=== PATIENT | female | born 1970 | race Caucasian/White ===

== ENCOUNTER 2018-09-06 09:18 | Emergency (ER) | payer MEDICAID ==
[2018-09-06 09:51] VITALS: BMI 27.3
[2018-09-06] MEDS ORDERED: Sodium Chloride 0.9% 1,000 ML IV STA (09:53)
--- NOTE | 2018-09-06 09:58 | ED PDOC ---
Arrival/HPI - General Historian: Patient - History of Present Illness Narrative History of Present Illness (Text): 09/06/18 09:54 48 y/o female, pmh including menorrhagia with iron defiency anemia on iron supplement, nkda, c/o feeling fatigue and tired after her 2 weeks menstrual cycle finished yesterday. Pt. stated that she had history of blood transfusion due to the heavy period with last transfusion on 07/2018 at [facility] [place] with 2 units of PRBC, scheduled to see her new obgyn tomorrow but she feels fatigue and tired, no night sweat, no rash, no numbness or tingling, no palpitation, no numbness or tingling, no other medical or psychological complaints. Past Medical History - Provider Review Nursing Documentation Reviewed: Yes Family/Social History - Physician Review Nursing Documentation Reviewed: Yes Family/Social History: Unknown Family HX Allergies/Home Meds Allergies/Adverse Reactions: Allergies No Known Allergies Allergy (Verified 09/06/18 09:46) Home Medications: Home Meds Medication Instructions Recorded Confirmed Iron Ps Complex/B12/Folic Acid 1 cap PO DAILY 09/06/18 09/06/18 [Poly-Iron 150 Forte 25 Mcg-1 mg-150 mg] Naproxen [Naprosyn Tab] 375 mg PO BID 09/06/18 09/06/18 Review of Systems - Review of Systems Constitutional: Fatigue. absent: Fevers Eyes: absent: Vision Changes ENT: absent: Hearing Changes Respiratory: absent: SOB, Cough Cardiovascular: absent: Chest Pain Gastrointestinal: absent: Abdominal Pain, Vomiting Genitourinary Female: Vaginal Bleeding. absent: Dysuria, Frequency, Hematuria, Urine Output Changes, Vaginal Discharge Musculoskeletal: absent: Arthralgias, Back Pain Skin: absent: Rash, Pruritis Psychiatric: absent: Anxiety, Depression, Suicidal Ideation Physical Exam - Systems Exam Head: Present: Atraumatic, Normocephalic Pupils: Present: PERRL Extroacular Muscles: Present: EOMI Conjunctiva: Present: Normal Mouth: Present: Moist Mucous Membranes Neck: Present: Normal Range of Motion Respiratory/Chest: Present: Clear to Auscultation, Good Air Exchange. No: Respiratory Distress, Accessory Muscle Use Cardiovascular: Present: Regular Rate and Rhythm, Normal S1, S2. No: Murmurs Abdomen: No: Tenderness, Distention, Peritoneal Signs, Rebound, Guarding Genitourinary/Pelvic Exam: Present: Other (pt. refused) Back: Present: Normal Inspection Upper Extremity: Present: Normal Inspection. No: Cyanosis, Edema Lower Extremity: Present: Normal Inspection. No: Edema Neurological: Present: GCS=15, CN II-XII Intact, Speech Normal Skin: Present: Warm, Dry, Normal Color. No: Rashes Psychiatric: Present: Alert, Oriented x 3, Normal Insight, Normal Concentration Medical Decision Making ED Course and Treatment: 09/06/18 09:59 -labs -sonogram -IVF -Observe and reassess 09/06/18 12:09 -Sonogram: The uterus is enlarged due to a anterior fundal fibroid 11.0 cm greatest dimension obscuring the upper endometrium with the mid inferior endometrium unremarkable appearing. No additional myometrial findings. Cervix unremarkable. The bilateral ovaries are not identified and may be atrophic versus resected. Clinically correlate for potential bilateral oophorectomy. Bilateral adnexal compartments otherwise unremarkable appearing. -Labs are non-significant except hgb 10.1 -No active vaginal bleeding -All labs and radiology results discussed with the patient and advised outpatient follow up. -Discharge home with education on continue the iron supplement, hgb for this visit is 10.1, follow up with your own pmd and obgyn tomorrow, return to the ER or any new or worsening signs or symptoms. - RAD Interpretation Radiology Orders: 09/06/18 09:53 PELVIC NON OB B SCAN LIMITED [US] Stat Date of service: 09/06/2018 HISTORY: heavy period, fatigue, anemia COMPARISON: None available. TECHNIQUE: Transabdominal and transvaginal pelvic ultrasound was performed with longitudinal and transverse images submitted for interpretation. FINDINGS: UTERUS: Measures 14.9 x 8.7 x 10.8 cm. Uterus is enlarged, anteverted with a large anterior, mid to upper fundal fibroid appreciated bridging the sub serosal and submucous spaces distorting a portion of the upper endometrium significantly. The fibroid measures 11.0 x 8.3 x 10.2 cm. No additional myometrial lesion appreciable. ENDOMETRIUM: Measures 6.5 mm in diameter. Endometrium is partially obscured by large anterior fundal fibroid as discussed above. Visualize mid to inferior portion appears unremarkable. CERVIX: No cervical abnormality identified. RIGHT OVARY: Not identified. No definite suspicious right adnexal findings. LEFT OVARY: Not identified. No definite suspicious left adnexal findings. FREE FLUID: No significant free fluid noted. OTHER FINDINGS: None. IMPRESSION: 1. The uterus is enlarged due to a anterior fundal fibroid 11.0 cm greatest dimension obscuring the upper endometrium with the mid inferior endometrium unremarkable appearing. No additional myometrial findings. Cervix unremarkable. 2. The bilateral ovaries are not identified and may be atrophic versus resected. Clinically correlate for potential bilateral oophorectomy. Bilateral adnexal compartments otherwise unremarkable appearing. Teletype Installer: Radiologist - Medication Orders Current Medication Orders: Sodium Chloride (Sodium Chloride 0.9%) 1,000 mls @ 999 mls/hr IV .Q1H1M STA Stop: 09/06/18 10:53 - PA / PLATE STACKER HAND / Resident Statement / has reviewed & agrees with the documentation as recorded. Disposition/Present on Arrival - Present on Arrival Any Indicators Present on Arrival: No History of DVT/PE: No History of Uncontrolled Diabetes: No Urinary Catheter: No History of Decub. Ulcer: No - Disposition Have Diagnosis and Disposition been Completed?: Yes Diagnosis: Fibroid, Anemia Disposition: HOME/ ROUTINE Disposition Time: 12:12 Patient Plan: Discharge Condition: IMPROVED Additional Instructions: -Discharge home with education on continue the iron supplement, hgb for this visit is 10.1, follow up with your own pmd and obgyn tomorrow, return to the ER or any new or worsening signs or symptoms. Referrals: Momo Stone MD [Staff Provider] - Follow up with primary Jenni Irvin MD [Staff Provider] - Follow up with primary Forms: WORK NOTE
[2018-09-06 10:08] VITALS: RESP 18; TEMP 98; O2SAT 99
[2018-09-06 10:18] LABS: BASO # 0.02 K/mm3 (0.0-2.0); BASO % 0.3 % (0.0-3.0); EOS # 0.2 (0.0-0.7); EOS % 2.8 % (1.5-5.0); GRAN # 3.75 (1.4-6.5); GRAN % 52.9 % (50.0-68.0); HEMOGLOBIN 10.1 g/dL (12.0-16.0); LYMPH # 2.5 (1.2-3.4); LYMPH % 35.8 % (22.0-35.0); MEAN CORPUSCULAR HEMOGLOBIN 23.5 pg (25.0-35.0); MEAN CORPUSCULAR HGB CONC 29.8 g/dl (31.0-37.0); MONO # 0.6 (0.1-0.6); MONO % 8.2 % (1.0-6.0); RBC 4.29 10^6/uL (3.5-6.1); RED CELL DISTRIBUTION WIDTH 22.5 % (11.5-14.5); WHITE BLOOD COUNT 7.1 10^3/uL (4.5-11.0)
[2018-09-06 10:29] LABS: ALB/GLOB RATIO 1.2 (1.1-1.8); ALBUMIN 4.1 g/dL (3.0-4.8); ALT/SGPT 20 U/L (7-56); AST/SGOT 21 U/L (14-36); BLOOD UREA NITROGEN 9 mg/dL (7-21); CALCIUM 8.9 mg/dL (8.4-10.5); GFR NON-AFRICAN AMERICAN > 60
[2018-09-06 10:30] LABS: INR 0.95; PARTIAL THROMBOPLASTIN TIME 26.4 Seconds (25.1-36.5); PROTHROMBIN TIME 10.9 SECONDS (9.4-12.5)
--- NOTE | 2018-09-06 11:53 | US ---
Date of service: 09/06/2018 HISTORY: heavy period, fatigue, anemia COMPARISON: None available. TECHNIQUE: Transabdominal and transvaginal pelvic ultrasound was performed with longitudinal and transverse images submitted for interpretation. FINDINGS: UTERUS: Measures 14.9 x 8.7 x 10.8 cm. Uterus is enlarged, anteverted with a large anterior, mid to upper fundal fibroid appreciated bridging the sub serosal and submucous spaces distorting a portion of the upper endometrium significantly. The fibroid measures 11.0 x 8.3 x 10.2 cm. No additional myometrial lesion appreciable. ENDOMETRIUM: Measures 6.5 mm in diameter. Endometrium is partially obscured by large anterior fundal fibroid as discussed above. Visualize mid to inferior portion appears unremarkable. CERVIX: No cervical abnormality identified. RIGHT OVARY: Not identified. No definite suspicious right adnexal findings. LEFT OVARY: Not identified. No definite suspicious left adnexal findings. FREE FLUID: No significant free fluid noted. OTHER FINDINGS: None. IMPRESSION: 1. The uterus is enlarged due to a anterior fundal fibroid 11.0 cm greatest dimension obscuring the upper endometrium with the mid inferior endometrium unremarkable appearing. No additional myometrial findings. Cervix unremarkable. 2. The bilateral ovaries are not identified and may be atrophic versus resected. Clinically correlate for potential bilateral oophorectomy. Bilateral adnexal compartments otherwise unremarkable appearing.
[2018-09-06 12:04] VITALS: BP 145/78; PULSE 81
[2018-09-06 12:38] LABS: URINE BILIRUBIN NEGATIVE (NEGATIVE); URINE BLOOD NEGATIVE (NEGATIVE); URINE GLUCOSE (UA) NEGATIVE (NEGATIVE); URINE LEUKOCYTE ESTERASE NEGATIVE Leu/uL (NEGATIVE); URINE PROTEIN NEGATIVE mg/dL (<30 mg/dL); URINE UROBILINOGEN 0.2 E.U./dL (<1 E.U./dL)
[2018-09-06 12:40] LABS: URINE APPEARANCE CLEAR (CLEAR); URINE COLOR YELLOW (YELLOW)
== END 2018-09-06 13:12 | disposition home or self-care (01) ==
LOC: ED 09:18
DX: D64.9 Anemia, unspecified (principal); D25.9 Leiomyoma of uterus, unspecified
CPT/HCPCS: 76830; 80053; 81003; 83735; 85025; 85610; 85730; 86850; 86900; 96360; 99285; J7030

== ENCOUNTER 2018-09-17 07:38 | Emergency (ER) | payer MEDICAID, OTHER ==
[2018-09-17 07:38] VITALS: BMI 27.3
[2018-09-17] MEDS ORDERED: Sodium Chloride 0.9% 1,000 ML IV STA (08:11)
--- NOTE | 2018-09-17 08:20 | ED PDOC ---
Arrival/HPI - General Chief Complaint: Abdominal Pain Time Seen by Provider: 09/17/18 07:58 Historian: Patient - History of Present Illness Narrative History of Present Illness (Text): 09/17/18 08:10 A 48 year old female, whose past medical history includes fibroids and anemia, presents to the emergency department with a complaint of 3 day duration bloody stools. Patient reports bright red blood during her normal bowel movements. She complaints of some nausea and 1 episode of non-bilious, non- bloody vomiting yesterday. The patient also complains of burning/ cramping sensation to the epigastrium and mild lightheadedness when she stands. Patient notes that she traveled to [facility] at the beginning of June and was evaluated for similar symptoms. Patient was instructed to follow up as an outpatient for a colonoscopy. She denies fevers, chills, headache, dizziness, chest pain, shortness of breath, dyspnea on exertion, cough, lower abdominal pain, diarrhea, back pain, neck pain, vaginal bleeding/discharge, urinary symptoms, or any other complaint. PMD: Dr. Macias Time/Duration: Other (3 Days) Symptom Onset: Sudden Symptom Course: Unchanged Activities at Onset: Rest, Light Context: Home Past Medical History - Provider Review Nursing Documentation Reviewed: Yes - Cardiac Hx Cardiac Disorders: No - Pulmonary Hx Respiratory Disorders: No - Neurological Hx Neurological Disorder: No - HEENT Hx HEENT Disorder: No - Endocrine/Metabolic Hx Endocrine Disorders: No - Hematological/Oncological Hx Blood Disorders: Yes Hx Anemia: Yes Hx Blood Transfusions: Yes (07/2018) Hx Blood Transfusion Reaction: No - Integumentary Hx Dermatological Disorder: No - Musculoskeletal/Rheumatological Hx Musculoskeletal Disorders: No - Gastrointestinal Hx Gastrointestinal Disorders: No - Genitourinary/Gynecological Hx Genitourinary Disorders: Yes Other/Comment: menorrhagia - Psychiatric Hx Psychophysiologic Disorder: No Hx Substance Use: No - Surgical History Hx Dilation and Curettage: Yes - Anesthesia Hx Anesthesia: No Family/Social History - Physician Review Nursing Documentation Reviewed: Yes Family/Social History: No Known Family HX Smoking Status: Never Smoked Hx Alcohol Use: Yes Hx Substance Use: No Allergies/Home Meds Allergies/Adverse Reactions: Allergies No Known Allergies Allergy (Verified 09/06/18 09:46) Home Medications: Home Meds Medication Instructions Recorded Confirmed Iron Ps Complex/B12/Folic Acid 1 cap PO DAILY 09/06/18 09/17/18 [Poly-Iron 150 Forte 25 Mcg-1 mg-150 mg] Review of Systems - Physician Review All systems were reviewed & negative as marked: Yes - Review of Systems Constitutional: absent: Fevers, Night Sweats Respiratory: absent: SOB, Cough Cardiovascular: absent: Chest Pain, DOW Gastrointestinal: Abdominal Pain (Epigastric abdominal burning/cramping), Nausea, Vomiting, Hematochezia (Bright red blood in stools.). absent: Diarrhea Genitourinary Female: absent: Urine Output Changes, Vaginal Bleeding, Vaginal Discharge Musculoskeletal: absent: Back Pain, Neck Pain Neurological: Other (Lightheadedness). absent: Headache, Dizziness Physical Exam Vital Signs Reviewed: Yes Vital Signs Temp Pulse Resp BP Pulse Ox 09/17/18 07:52 97.9 F 92 H 16 133/81 100 09/17/18 07:51 97.9 F 94 H 16 133/81 100 Temperature: Afebrile Blood Pressure: Normal Pulse: Tachycardic Respiratory Rate: Normal Appearance: Positive for: Well-Appearing, Non-Toxic, Comfortable Pain Distress: None Mental Status: Positive for: Alert and Oriented X 3 - Systems Exam Head: Present: Atraumatic, Normocephalic Pupils: Present: PERRL Extroacular Muscles: Present: EOMI Conjunctiva: Present: Injected ([place]) Mouth: Present: Moist Mucous Membranes Neck: Present: Normal Range of Motion Respiratory/Chest: Present: Clear to Auscultation, Good Air Exchange. No: Respiratory Distress, Accessory Muscle Use Cardiovascular: Present: Regular Rate and Rhythm, Normal S1, S2. No: Murmurs Abdomen: Present: Tenderness (Epigastric tenderness), Guarding. No: Distention, Peritoneal Signs, Rebound Rectal: Present: Other (Rectal exam completed by resident, female slate trimmer present: Alba LAL. Supervised by me. Guaiac negative.). No: Occult Blood, Hemorrhoids, Fissures Back: Present: Normal Inspection Upper Extremity: Present: Normal Inspection. No: Cyanosis, Edema Lower Extremity: Present: Normal Inspection. No: Edema Neurological: Present: GCS=15, CN II-XII Intact, Speech Normal Skin: Present: Warm, Dry, Normal Color. No: Rashes Psychiatric: Present: Alert, Oriented x 3, Normal Insight, Normal Concentration Medical Decision Making ED Course and Treatment: 12/08/18 08:26 Impression: A 48 year old female presents to the emergency department with a complaint of 3 day duration bloody stools, nausea, vomiting, and epigastric discomfort. Differential: GI Bleed vs Cholecystitis vs UTI vs Enteritis Plan: -- EKG -- Labs -- Urinalysis -- Protonix, Zofran, and IV Fluids -- Reassess and disposition Prior Visits: Notes and results from previous visits were reviewed. Progress Notes: EKG: Ordered, reviewed, and independently interpreted the EKG. Rate : 79 BPM Rhythm : NSR PROCEDURE: CT Abdomen and Pelvis with contrast Signed By: Mychal Ramos MD Date Signed: 09/17/18 1221 IMPRESSION: There is an enlarged fibroid uterus measuring 12.8 x9.5 by 12.5 cm. There is a thick walled collapsed cyst in the right ovary measuring 1.7 cm. No acute intra- abdominal findings. 09/17/18 13:11 Patient feels much better and she has no abdominal pain. Her bloody stools this week were mild. No large quantity of blood as per patient. She no longer feels lightheaded after IV fluids. Abdomen is soft and not tender. She states that she has a cough now this week. Some nasal congestion. CXR ordered. 09/17/18 13:56 CT reviewed. Urinalysis negative. Chest X-ray negative. In light of elevated white count and cough, will treat with Levaquin for early pneumonia. I have discussed the results and plan with the patient, who expresses understanding. Patient in agreement with plan to be discharged home. Patient is stable for discharge. Patient was instructed to follow up with physician or return if symptoms worsen or new concerning symptoms arise. - Lab Interpretations I have reviewed the lab results: Yes - EKG Interpretation Interpreted by ED Physician: Yes Type: 12 lead EKG - Scribe Statement The provider has reviewed the documentation as recorded by the Norrisibshira Wu Provider Scribe Attestation: All medical record entries made by the Scribe were at my direction and personally dictated by me. I have reviewed the chart and agree that the record accurately reflects my personal performance of the history, physical exam, medical decision making, and the department course for this patient. I have also personally directed, reviewed, and agree with the discharge instructions and disposition. Disposition/Present on Arrival - Present on Arrival Any Indicators Present on Arrival: No History of DVT/PE: No History of Uncontrolled Diabetes: No Urinary Catheter: No History of Decub. Ulcer: No History Surgical Site Infection Following: None - Disposition Have Diagnosis and Disposition been Completed?: Yes Diagnosis: Abdominal pain, GI bleeding, Cough Disposition: HOME/ ROUTINE Disposition Time: 13:56 Patient Plan: Discharge Condition: IMPROVED Discharge Instructions (ExitCare): Acute Bronchitis, Gastrointestinal Bleeding (DC), Viral Gastroenteritis, Adult (DC) Additional Instructions: HEATHER ROSE, thank you for letting us take care of you today. Your provider was Frank Abraham DO and you were treated for Abdominal Pain, GI bleeding and Cough. The emergency medical care you received today was directed at your acute symptoms. If you were prescribed any medication, please fill it and take as directed. It may take several days for your symptoms to resolve. Return to the Emergency Department if your symptoms worsen, do not improve, or if you have any other problems. Please contact your doctor or call one of the physicians/clinics you have been referred to that are listed on the Patient Visit Information form that is included in your discharge packet. Bring any paperwork you were given at discharge with you along with any medications you are taking to your follow up visit. Our treatment cannot replace ongoing medical care by a primary care provider outside of the emergency department. Thank you for allowing the [facility] team to be part of your care today. If you had an X-Ray or CT scan: A Radiologist will review the ED reading if any change in treatment is needed we will contact you. If you had a blood, urine, or wound culture: It will take several days for the results, if any change in treatment is needed we will contact you. If you had an STI test: It will take 48 hours for the results. Please call after 1 week if you have not heard back. Prescriptions: Famotidine [Pepcid] 20 mg PO DAILY #30 tab Levofloxacin [Levaquin] 750 mg PO DAILY #4 tablet Ondansetron ODT [Zofran ODT] 4 mg PO Q6 #14 odt Referrals: [facility] Bethany Nguyen, [Non-Staff] - Follow up with primary Forms: [employer] (Khmer)
[2018-09-17 08:35] LABS: PH,URINE 7.5 (4.7-8.0); URINE BILIRUBIN NEGATIVE (NEGATIVE); URINE BLOOD NEGATIVE (NEGATIVE); URINE GLUCOSE (UA) NEGATIVE (NEGATIVE); URINE LEUKOCYTE ESTERASE NEGATIVE Leu/uL (NEGATIVE); URINE PROTEIN NEGATIVE mg/dL (<30 mg/dL); URINE UROBILINOGEN 0.2 E.U./dL (<1 E.U./dL)
[2018-09-17 08:39] LABS: URINE APPEARANCE CLEAR (CLEAR); URINE COLOR YELLOW (YELLOW)
[2018-09-17 08:56] LABS: BASO # 0.02 K/mm3 (0.0-2.0); BASO % 0.1 % (0.0-3.0); EOS # 0.1 (0.0-0.7); EOS % 0.6 % (1.5-5.0); GRAN # 11.93 (1.4-6.5); GRAN % 77.4 % (50.0-68.0); HEMOGLOBIN 10.6 g/dL (12.0-16.0); LYMPH # 2.1 (1.2-3.4); LYMPH % 13.7 % (22.0-35.0); MEAN CELL VOLUME 78.6 fl (80.0-105.0); MEAN CORPUSCULAR HEMOGLOBIN 23.9 pg (25.0-35.0); MEAN CORPUSCULAR HGB CONC 30.5 g/dl (31.0-37.0); MEAN PLATELET VOLUME 9.2 fl (7.0-11.0); MONO # 1.3 (0.1-0.6); MONO % 8.2 % (1.0-6.0); RBC 4.43 10^6/uL (3.5-6.1); RED CELL DISTRIBUTION WIDTH 19.5 % (11.5-14.5); WHITE BLOOD COUNT 15.4 10^3/uL (4.5-11.0)
[2018-09-17 09:14] LABS: PARTIAL THROMBOPLASTIN TIME 26.9 Seconds (25.1-36.5)
[2018-09-17] MEDS ORDERED: Iohexol 240 (50 ml) ONE (09:15)
[2018-09-17 09:18] LABS: ALB/GLOB RATIO 1.2 (1.1-1.8); ALBUMIN 4.4 g/dL (3.0-4.8); ALT/SGPT 34 U/L (7-56); AMYLASE 92 U/L (35-125); AST/SGOT 29 U/L (14-36); BLOOD UREA NITROGEN 7 mg/dL (7-21); CALCIUM 9.7 mg/dL (8.4-10.5); GFR NON-AFRICAN AMERICAN > 60; LIPASE 167 U/L (23-300)
[2018-09-17 09:25] LABS: INR 1.1; PROTHROMBIN TIME 12.7 SECONDS (9.4-12.5)
[2018-09-17] MEDS ORDERED: Atrop/Hyosc/Scopal/PB Elixir (120 ml) PO STA (10:36)
[2018-09-17] MEDS ORDERED: Lidocaine 2% Viscous 100 ml PO STA (10:36)
[2018-09-17] MEDS ORDERED: Alum-Mag Hydrox-Simethicone Susp (30 mL) PO STA (10:36)
[2018-09-17] MEDS ORDERED: Iohexol 350 MG/100 ML VIAL ONE (11:25)
--- NOTE | 2018-09-17 12:29 | CT ---
Date of service: 09/17/2018 PROCEDURE: CT Abdomen and Pelvis with contrast HISTORY: abd pain, bloody stool COMPARISON: None. TECHNIQUE: Contrast dose: 100 cc of Omni 350 Radiation dose: Total exam DLP = 455.29 mGy-cm. This CT exam was performed using one or more of the following dose reduction techniques: Automated exposure control, adjustment of the mA and/or kV according to patient size, and/or use of iterative reconstruction technique. FINDINGS: LOWER THORAX: Unremarkable. LIVER: Unremarkable. No gross lesion or ductal dilatation. GALLBLADDER AND BILE DUCTS: Unremarkable. PANCREAS: Unremarkable. No gross lesion or ductal dilatation. SPLEEN: Unremarkable. ADRENALS: Unremarkable. No mass. KIDNEYS AND URETERS: Both renal collecting systems are mildly dilated. There are no stones visualized. This could be secondary to compression by the enlarged uterus. VASCULATURE: Unremarkable. No aortic aneurysm. No aortic atherosclerotic calcification or mural plaque present. BOWEL: Unremarkable. No obstruction. No gross mural thickening. APPENDIX: Normal appendix. PERITONEUM: Unremarkable. No free fluid. No free air. LYMPH NODES: Unremarkable. No enlarged lymph nodes. BLADDER: Unremarkable. REPRODUCTIVE: There is an enlarged fibroid uterus measuring 12.8 x 9.5 by 12.5 cm. There is a thick-walled collapsed cyst in the right ovary measuring 1.7 cm. BONES: No acute fracture. OTHER FINDINGS: None. IMPRESSION: There is an enlarged fibroid uterus measuring 12.8 x 9.5 by 12.5 cm. There is a thick-walled collapsed cyst in the right ovary measuring 1.7 cm. No acute intra-abdominal findings
[2018-09-17 12:50] VITALS: O2SAT 99
[2018-09-17] MEDS ORDERED: levoFLOXacin 750 MG TAB PO STA (13:35)
[2018-09-17 14:00] VITALS: BP 132/51; PULSE 85; RESP 19; TEMP 98
--- NOTE | 2018-09-17 14:11 | RAD ---
Date of service: 09/17/2018 HISTORY: cough r/o pna COMPARISON: No prior. TECHNIQUE: Chest PA and lateral FINDINGS: LUNGS: No active pulmonary disease. PLEURA: No significant pleural effusion identified. No pneumothorax apparent. CARDIOVASCULAR: No aortic atherosclerotic calcification present. Normal cardiac size. No pulmonary vascular congestion. OSSEOUS STRUCTURES: No significant abnormalities. VISUALIZED UPPER ABDOMEN: Normal. OTHER FINDINGS: None. IMPRESSION: No active disease.
--- NOTE | 2018-09-17 15:40 | CARD ---
APPROVED REPORT Date of service: 09/17/2018 EKG Measurement Heart [id number] <Conclusion> Normal sinus rhythm Normal ECG
== END 2018-09-17 13:59 | disposition home or self-care (01) ==
LOC: ED 07:38
DX: K92.2 Gastrointestinal hemorrhage, unspecified (principal); R10.9 Unspecified abdominal pain; R05 Cough; D25.9 Leiomyoma of uterus, unspecified; D64.9 Anemia, unspecified
CPT/HCPCS: 71046; 74177; 80053; 81003; 82150; 83690; 85025; 85610; 85730; 86850; 86900; 93005; 96361; 96374; 96375; 99284; C9113; J2405; J7030; Q9966; Q9967

== ENCOUNTER 2019-02-08 05:42 | Observation (INO) | payer MEDICAID, OTHER ==
--- NOTE | 2019-02-08 06:20 | ED PDOC ---
Arrival/HPI - General Chief Complaint: Dizziness/Lightheaded Time Seen by Provider: 02/08/19 06:08 Historian: Patient - History of Present Illness Narrative History of Present Illness (Text): 02/08/19 06:17 Jesenia Koroma is a 48 year old female, whose past medical history includes hysterectomy, uterine fibroids, and anemia, who presents to the ED complaining of near-syncope. Patient states she has been feeling near-syncopal in termittently for the past week with associated dizziness. Patient described dizziness as light-headedness. Patient denies any trauma/injury, palpitations, chest pain, shortness of breath, nausea, vomiting, diarrhea, neck pain, headache, dizziness, or any other complaints. Time/Duration: 1 week Symptom Onset: Gradual Symptom Course: Unchanged Activities at Onset: Light Context: Home Past Medical History - Provider Review Nursing Documentation Reviewed: Yes - Cardiac Hx Cardiac Disorders: No - Pulmonary Hx Respiratory Disorders: No - Neurological Hx Neurological Disorder: No - HEENT Hx HEENT Disorder: No - Endocrine/Metabolic Hx Endocrine Disorders: No - Hematological/Oncological Hx Blood Disorders: Yes Hx Anemia: Yes Hx Blood Transfusions: Yes (07/2018) Hx Blood Transfusion Reaction: No - Integumentary Hx Dermatological Disorder: No - Musculoskeletal/Rheumatological Hx Musculoskeletal Disorders: No - Gastrointestinal Hx Gastrointestinal Disorders: No - Genitourinary/Gynecological Hx Genitourinary Disorders: Yes Other/Comment: menorrhagia - Psychiatric Hx Psychophysiologic Disorder: No Hx Substance Use: No - Surgical History Hx Dilation and Curettage: Yes - Anesthesia Hx Anesthesia: No Family/Social History - Physician Review Nursing Documentation Reviewed: Yes Family/Social History: Unknown Family HX Smoking Status: Never Smoked Hx Alcohol Use: Yes Hx Substance Use: No Allergies/Home Meds Allergies/Adverse Reactions: Allergies No Known Allergies Allergy (Verified 09/06/18 09:46) Home Medications: Home Meds Medication Instructions Recorded Confirmed Iron Ps Complex/B12/Folic Acid 1 cap PO DAILY 09/06/18 09/17/18 [Poly-Iron 150 Forte 25 Mcg-1 mg-150 mg] Review of Systems - Physician Review All systems were reviewed & negative as marked: Yes - Review of Systems Constitutional: Normal. absent: Fevers Eyes: Normal ENT: Normal Respiratory: Normal. absent: SOB, Cough Cardiovascular: Other (+near-syncopa). absent: Chest Pain Gastrointestinal: Normal. absent: Abdominal Pain, Diarrhea, Nausea, Vomiting Genitourinary Female: Normal. absent: Dysuria, Frequency, Hematuria, Urine Output Changes Musculoskeletal: Normal. absent: Neck Pain Skin: Normal. absent: Rash Neurological: Dizziness Endocrine: Normal Hemo/Lymphatic: Normal Psychiatric: Normal Physical Exam Vital Signs Reviewed: Yes Vital Signs Temp Pulse Resp BP Pulse Ox 02/08/19 05:53 97.3 F L 62 18 129/85 99 Temperature: Afebrile Blood Pressure: Normal Pulse: Regular Respiratory Rate: Normal Appearance: Positive for: Well-Appearing, Non-Toxic, Comfortable Pain Distress: None Mental Status: Positive for: Alert and Oriented X 3 - Systems Exam Head: Present: Atraumatic, Normocephalic Pupils: Present: PERRL Extroacular Muscles: Present: EOMI Conjunctiva: Present: Normal Mouth: Present: Moist Mucous Membranes Neck: Present: Normal Range of Motion Respiratory/Chest: Present: Clear to Auscultation, Good Air Exchange. No: Respiratory Distress, Accessory Muscle Use Cardiovascular: Present: Regular Rate and Rhythm, Normal S1, S2. No: Murmurs Abdomen: No: Tenderness, Distention, Peritoneal Signs Back: Present: Normal Inspection Upper Extremity: Present: Normal Inspection. No: Cyanosis, Edema Lower Extremity: Present: Normal Inspection. No: Edema Neurological: Present: GCS=15, CN II-XII Intact, Speech Normal Skin: Present: Warm, Dry, Normal Color. No: Rashes Psychiatric: Present: Alert, Oriented x 3, Normal Insight, Normal Concentration Medical Decision Making ED Course and Treatment: 02/08/19 06:17 Impression: 48 year old female complaining of intermittent near-syncope and dizziness for the past week. Plan: -- CT Head w/o contrast -- EKG -- Chest X-ray -- Labs, cardiac enzymes -- Reassess and disposition Progress Notes: 02/08/19 07:00 Case endorsed to /pending labs/CT Head/CXR/reassess/final disposition - EKG Interpretation EKG Interpretation (Text): 02/08/19 06:55 EKG-Sinus bradycardia@56,no acute changes Interpreted by ED Physician: Yes Type: 12 lead EKG - Scribe Statement The provider has reviewed the documentation as recorded by the Gucci Cruz Provider Scribe Attestation: All medical record entries made by the Scribe were at my direction and personally dictated by me. I have reviewed the chart and agree that the record accurately reflects my personal performance of the history, physical exam, medical decision making, and the department course for this patient. I have also personally directed, reviewed, and agree with the discharge instructions and disposition. Disposition/Present on Arrival - Present on Arrival Any Indicators Present on Arrival: No History of DVT/PE: No History of Uncontrolled Diabetes: No Urinary Catheter: No History of Decub. Ulcer: No History Surgical Site Infection Following: None - Disposition Have Diagnosis and Disposition been Completed?: No Diagnosis: Near syncope, Dizziness Disposition Time: 07:00 Patient Problems: Current Active Problems Problem Status Onset Dizziness Acute Near syncope Acute Condition: STABLE Referrals: Rosas Sheffield MD [Primary Care Provider] - Follow up with primary Forms: [employer] (Urdu)
--- NOTE | 2019-02-08 07:11 | ED PDOC ---
Physical Exam Vital Signs Temp Pulse Resp BP Pulse Ox 02/08/19 05:53 97.3 F L 62 18 129/85 99 Medical Decision Making ED Course and Treatment: 02/08/19 07:10 Case endorsed to me by Dr. Noriega. Pending labs and CT Head. Will reassess. 02/08/19 09:[address] Head [address] - Normal CT of head. 02/08/19 10:40 Assessed patient who says she wants to be admitted. Still feels near syncopal. 02/08/19 11:[address] Kaiser who accepts patient for observation. - RAD Interpretation Radiology Orders: 02/08/19 06:18 CHEST PORTABLE [RAD] Stat 02/08/19 06:19 HEAD W/O CONTRAST [CT] Stat - Scribe Statement The provider has reviewed the documentation as recorded by the Norrisibshira Coreas All medical record entries made by the Scribe were at my direction and personally dictated by me. I have reviewed the chart and agree that the record accurately reflects my personal performance of the history, physical exam, medical decision making, and the department course for this patient. I have also personally directed, reviewed, and agree with the discharge instructions and disposition. Disposition/Present on Arrival - Present on Arrival Any Indicators Present on Arrival: No History of DVT/PE: No History of Uncontrolled Diabetes: No Urinary Catheter: No History of Decub. Ulcer: No History Surgical Site Infection Following: None - Disposition Have Diagnosis and Disposition been Completed?: Yes Diagnosis: Near syncope, Dizziness Disposition: HOSPITALIZED Disposition Time: 11:04 Patient Plan: Admission, Observation Condition: STABLE
[2019-02-08 07:40] LABS: HEMOGLOBIN 9.2 g/dL (12.0-16.0); MEAN CELL VOLUME 73.2 fl (80.0-105.0); MEAN CORPUSCULAR HEMOGLOBIN 21.1 pg (25.0-35.0); MEAN CORPUSCULAR HGB CONC 28.8 g/dl (31.0-37.0); MEAN PLATELET VOLUME 9.7 fl (7.0-11.0); RBC 4.37 10^6/uL (3.5-6.1); RED CELL DISTRIBUTION WIDTH 16.7 % (11.5-14.5)
[2019-02-08 07:49] LABS: INR 1.05; PARTIAL THROMBOPLASTIN TIME 30.5 Seconds (26.9-38.3); PROTHROMBIN TIME 11.9 SECONDS (9.4-12.5)
[2019-02-08 07:52] LABS: ALB/GLOB RATIO 1.2 (1.1-1.8); ALBUMIN 3.7 g/dL (3.0-4.8); ALT/SGPT 8 U/L (7-56); AST/SGOT 18 U/L (14-36); BLOOD UREA NITROGEN 6 mg/dL (7-21); CALCIUM 8.9 mg/dL (8.4-10.5); GFR NON-AFRICAN AMERICAN > 60
[2019-02-08 08:03] LABS: TROPONIN I < 0.01 ng/mL
--- NOTE | 2019-02-08 09:06 | CT ---
Date of service: 02/08/2019 PROCEDURE: CT HEAD WITHOUT CONTRAST. HISTORY: near syncope COMPARISON: None available. TECHNIQUE: Axial computed tomography images were obtained through the head/brain without intravenous contrast. Radiation dose: Total exam DLP = 937.16 mGy-cm. This CT exam was performed using one or more of the following dose reduction techniques: Automated exposure control, adjustment of the mA and/or kV according to patient size, and/or use of iterative reconstruction technique. FINDINGS: HEMORRHAGE: No intracranial hemorrhage. BRAIN: No mass effect or edema. No atrophy or chronic microvascular ischemic changes. VENTRICLES: Unremarkable. No hydrocephalus. CALVARIUM: Unremarkable. PARANASAL SINUSES: Unremarkable as visualized. No significant inflammatory changes. MASTOID AIR CELLS: Unremarkable as visualized. No inflammatory changes. OTHER FINDINGS: None. IMPRESSION: Normal CT of the Head.
[2019-02-08 09:30] LABS: URINE BILIRUBIN NEGATIVE (NEGATIVE); URINE BLOOD NEGATIVE (NEGATIVE); URINE GLUCOSE (UA) NEGATIVE (NEGATIVE); URINE LEUKOCYTE ESTERASE NEGATIVE Leu/uL (NEGATIVE); URINE PROTEIN NEGATIVE mg/dL (<30 mg/dL); URINE UROBILINOGEN 0.2 E.U./dL (<1 E.U./dL)
[2019-02-08 09:31] LABS: URINE APPEARANCE CLEAR (CLEAR); URINE COLOR LIGHT YELLOW (YELLOW)
--- NOTE | 2019-02-08 10:22 | RAD ---
Date of service: 02/08/2019 HISTORY: near syncope COMPARISON: 09/17/2018 TECHNIQUE: 1 view obtained. FINDINGS: LUNGS: No active pulmonary disease. PLEURA: No significant pleural effusion identified, no pneumothorax apparent. CARDIOVASCULAR: No aortic atherosclerotic calcification present. Normal cardiac size. No pulmonary vascular congestion. OSSEOUS STRUCTURES: No significant abnormalities. VISUALIZED UPPER ABDOMEN: Normal. OTHER FINDINGS: None. IMPRESSION: No active disease.
--- NOTE | 2019-02-08 10:45 | CARD ---
APPROVED REPORT Date of service: 02/08/2019 EKG Measurement Heart [id number] CA [id number] [id number] <Conclusion> Sinus bradycardia Otherwise normal ECG
--- NOTE | 2019-02-08 13:21 | CP.PCM.HP ---
<Merlene Yuan - Last Filed: 02/08/19 14:36> History of Present Illness - History of Present Illness History of Present Illness: Pgy3 Hospitalist H&P for Dr. 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 Patient reports she feels more lightheaded than dizzy especially when goes from lying down to standing up. She reports the episodes of lightheadedness last 1-2 seconds. She does admit to feeling unsteady on her feet and having some loss of balance during these episodes if she tried to ambulate but denies any falls/trauma. She denies any focal weakness/numbness in b/l UE and LE. She denies any tonic/clonic movements, loss of bladder/bowel incontinence. Patient reports that her dizziness causes her to feel like she is spinning. She denied any fever, chills, chest pain, palpitations, SOB, cough, abd pain, nausea, vomiting, dysuria, hematuria, diarrhea, melena, pain/swelling in her b/l LE. Patient denies any recent illnesses/travel/infections. She admits to some mild headache at times. 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 [place] Present on Admission - Present on Admission Any Indicators Present on Admission: No Review of Systems - Review of Systems All systems: reviewed and no additional remarkable complaints except Review of Systems: as per HPI Past Patient History - Past Social History Smoking Status: Never Smoked - CARDIAC Hx Cardiac Disorders: No - PULMONARY Hx Respiratory Disorders: No - NEUROLOGICAL Hx Neurological Disorder: No - HEENT Hx HEENT Problems: No - ENDOCRINE/METABOLIC Hx Endocrine Disorders: No - HEMATOLOGICAL/ONCOLOGICAL Hx Blood Disorders: Yes Hx Anemia: Yes Hx Blood Transfusions: Yes (07/2018) Hx Blood Transfusion Reaction: No - INTEGUMENTARY Hx Dermatological Problems: No - MUSCULOSKELETAL/RHEUMATOLOGICAL Hx Musculoskeletal Disorders: No - GASTROINTESTINAL Hx Gastrointestinal Disorders: No - GENITOURINARY/GYNECOLOGICAL Hx Genitourinary Disorders: Yes Other/Comment: menorrhagia - PSYCHIATRIC Hx Psychophysiologic Disorder: No Hx Substance Use: No - SURGICAL HISTORY Hx Dilation and Curettage: Yes - ANESTHESIA Hx Anesthesia: No Meds Allergies/Adverse Reactions: Allergies Allergy/AdvReac Type Severity Reaction Status Date / Time No Known Allergies Allergy Verified 02/08/19 11:50 Physical Exam - Constitutional Appears: Non-toxic, No Acute Distress - Head Exam Head Exam: ATRAUMATIC, NORMAL INSPECTION, NORMOCEPHALIC - Eye Exam Eye Exam: EOMI, Normal appearance, PERRL. absent: Conjunctival injection, Nystagmus, Scleral icterus - ENT Exam ENT Exam: Mucous Membranes Moist - Neck Exam Neck exam: Positive for: Full Rom, Normal Inspection. Negative for: Lymphadenopathy - Respiratory Exam Respiratory Exam: Clear to Auscultation Bilateral, NORMAL BREATHING PATTERN. absent: Accessory Muscle Use, Rales, Rhonchi, Wheezes, Respiratory Distress - Cardiovascular Exam Cardiovascular Exam: Bradycardia, REGULAR RHYTHM, +S1, +S2 - GI/Abdominal Exam GI & Abdominal Exam: Normal Bowel Sounds, Soft. absent: Distended, Firm, Guarding, Hernia, Rigid, Tenderness - Extremities Exam Extremities exam: Positive for: normal capillary refill, normal inspection, pedal pulses present. Negative for: pedal edema - Back Exam Back exam: NORMAL INSPECTION. absent: rash noted, tenderness - Neurological Exam Neurological exam: Alert, CN II-XII Intact, Oriented x3, Reflexes Normal - Expanded Neurological Exam Expanded Patient oriented to: person, place, time Speech: Fluid Speech Cranial nerves: EOM's Intact: Normal, Facial Palsey w/Forehead Movement: Normal, Facial Palsey w/o Forehead Movement: Normal, Facial Sensation: Normal, Gag Reflex: Normal, Nystagmus: Normal, Tongue Deviation: Normal Neuro motor strength exam: Left Upper Extremity: 5, Right Upper Extremity: 5, Left Lower Extremity: 5, Right Lower Extremity: 5 Coma Scale Eye Opening: SPONTANEOUS Coma Scale Motor Response: OBEYS COMMANDS Coma Scale Verbal: Oriented Coma Scale Total: 15 - Psychiatric Exam Psychiatric exam: Normal Affect, Normal Mood - Skin Skin Exam: Dry, Intact, Normal Color, Warm Results - Vital Signs Recent Vital Signs: Last Vital Signs Temp 97.8 F 02/08/19 12:00 Pulse 64 02/08/19 12:00 Resp 19 02/08/19 12:00 BP 134/94 H 02/08/19 12:00 Pulse Ox 99 02/08/19 12:00 - Labs Result Diagrams: 02/08/19 07:17 02/08/19 07:17 Labs: Laboratory Results - last 24 hr 02/08/19 02/08/19 02/08/19 07:17 07:17 07:17 WBC 7.0 D RBC 4.37 Hgb 9.2 L Hct 32.0 L MCV 73.2 L D MCH 21.1 L MCHC 28.8 L RDW 16.7 H Plt Count 230 MPV 9.7 PT 11.9 INR 1.05 APTT 30.5 Sodium 140 Potassium 4.1 Chloride 106 Carbon Dioxide 28 Anion Gap 10 BUN 6 L Creatinine 0.5 L Est GFR ( Amer) > 60 Est GFR (Non-Af Amer) > 60 Random Glucose 89 Calcium 8.9 Total Bilirubin 0.5 AST 18 ALT 8 Alkaline Phosphatase 62 Lactate Dehydrogenase 268 L Total Creatine Kinase 26 L Troponin I < 0.01 Total Protein 6.8 Albumin 3.7 Globulin 3.1 Albumin/Globulin Ratio 1.2 Urine Color Urine Appearance Urine pH Ur Specific [place] Urine Protein Urine Glucose (UA) Urine Ketones Urine Blood Urine Nitrate Urine Bilirubin Urine Urobilinogen Ur Leukocyte Esterase 02/08/19 08:33 WBC RBC Hgb Hct MCV MCH MCHC RDW Plt Count MPV PT INR APTT Sodium Potassium Chloride Carbon Dioxide Anion Gap BUN Creatinine Est GFR ( Amer) Est GFR (Non-Af Amer) Random Glucose Calcium Total Bilirubin AST ALT Alkaline Phosphatase Lactate Dehydrogenase Total Creatine Kinase Troponin I Total Protein Albumin Globulin Albumin/Globulin Ratio Urine Color Light yellow Urine Appearance Clear Urine pH 6.0 Ur Specific [place] 1.010 Urine Protein Negative Urine Glucose (UA) Negative Urine Ketones Negative Urine Blood Negative Urine Nitrate Negative Urine Bilirubin Negative Urine Urobilinogen 0.2 Ur Leukocyte Esterase Negative Assessment & Plan - Assessment and Plan (Free Text) Assessment: 48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 Patient admitted to telemetry for further management. 1. Orthostatic hypotension 2. Symptomatic anemia 3. Iron deficiency anemia 4. Unsteady gait Plan: Patient blood work, imaging, and vitals noted in chart. CT head in ER was unremarkable. CXR and EKG reviewed. Patient to be observed on TELE floor. Will obtain repeat orthostatic vitals after patient received 1L fluids. In light of H&H will order anemia work up to follow up. Patient stated she had a Hgb of 6 for which she required transfusion prior to having her hysterectomy. Patient was taking iron pills in the past but reports she has not seen her PMD in over 1 year. Will review iron studies and treat accordingly. Patient also reported constipation for which she drinks prune juice. Will endrose to nurse and dietary to give prune juice as requested. Patient is hemodynamically stable with no a cute signs of bleeding thus is does not require blood transfusion at this time. Will repeat CBC and f/u AM labs. Will order lipid panel in AM and accuchecks without coverage. 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 Will have PT on board for unsteady gait. Patient will need close follow up outpatient with PMD and has been counseled on need for screening colonoscopy when she turns 49 in May. Patient on heart healthy diet at this time and SCDs. Will continue to monitor. Discussed with Dr. Cholo Yuan PGY3 <Luisa Emmanuel - Last Filed: 02/08/19 17:02> Results - Vital Signs Recent Vital Signs: Last Vital Signs Temp 97.8 F 02/08/19 12:00 Pulse 64 02/08/19 12:00 Resp 18 02/08/19 14:14 BP 134/94 H 02/08/19 12:00 Pulse Ox 99 02/08/19 12:00 - Labs Result Diagrams: 02/08/19 14:30 02/08/19 07:17 Labs: Laboratory Results - last 24 hr 02/08/19 02/08/19 02/08/19 07:00 07:00 07:00 WBC RBC Hgb Hct MCV MCH MCHC RDW Plt Count MPV Retic Count 1.36 PT INR APTT Sodium Potassium Chloride Carbon Dioxide Anion Gap BUN Creatinine Est GFR ( Amer) Est GFR (Non-Af Amer) Random Glucose Calcium Iron 26 L TIBC 391 % Saturation 7 L Transferrin 296.63 Total Bilirubin AST ALT Alkaline Phosphatase Lactate Dehydrogenase Total Creatine Kinase Troponin I Total Protein Albumin Globulin Albumin/Globulin Ratio Urine Color Urine Appearance Urine pH Ur Specific [place] Urine Protein Urine Glucose (UA) Urine Ketones Urine Blood Urine Nitrate Urine Bilirubin Urine Urobilinogen Ur Leukocyte Esterase 02/08/19 02/08/19 02/08/19 07:17 07:17 07:17 WBC 7.0 D RBC 4.37 Hgb 9.2 L Hct 32.0 L MCV 73.2 L D MCH 21.1 L MCHC 28.8 L RDW 16.7 H Plt Count 230 MPV 9.7 Retic Count PT 11.9 INR 1.05 APTT 30.5 Sodium 140 Potassium 4.1 Chloride 106 Carbon Dioxide 28 Anion Gap 10 BUN 6 L Creatinine 0.5 L Est GFR ( Amer) > 60 Est GFR (Non-Af Amer) > 60 Random Glucose 89 Calcium 8.9 Iron TIBC % Saturation Transferrin Total Bilirubin 0.5 AST 18 ALT 8 Alkaline Phosphatase 62 Lactate Dehydrogenase 268 L Total Creatine Kinase 26 L Troponin I < 0.01 Total Protein 6.8 Albumin 3.7 Globulin 3.1 Albumin/Globulin Ratio 1.2 Urine Color Urine Appearance Urine pH Ur Specific [place] Urine Protein Urine Glucose (UA) Urine Ketones Urine Blood Urine Nitrate Urine Bilirubin Urine Urobilinogen Ur Leukocyte Esterase 02/08/19 02/08/19 08:33 14:30 WBC 8.9 D RBC 4.34 Hgb 9.1 L Hct 32.0 L MCV 73.7 L MCH 21.0 L MCHC 28.4 L RDW 16.8 H Plt Count 235 MPV 9.2 Retic Count PT INR APTT Sodium Potassium Chloride Carbon Dioxide Anion Gap BUN Creatinine Est GFR ( Amer) Est GFR (Non-Af Amer) Random Glucose Calcium Iron TIBC % Saturation Transferrin Total Bilirubin AST ALT Alkaline Phosphatase Lactate Dehydrogenase Total Creatine Kinase Troponin I Total Protein Albumin Globulin Albumin/Globulin Ratio Urine Color Light yellow Urine Appearance Clear Urine pH 6.0 Ur Specific [place] 1.010 Urine Protein Negative Urine Glucose (UA) Negative Urine Ketones Negative Urine Blood Negative Urine Nitrate Negative Urine Bilirubin Negative Urine Urobilinogen 0.2 Ur Leukocyte Esterase Negative Attending/Attestation - Attestation I have personally seen and examined this patient.: Yes I have fully participated in the care of the patient.: Yes I have reviewed all pertinent clinical information: Yes Notes (Text): 02/08/19 16:57 Patient was seen and examined with medical facilities section director. 48 years old female with PMH of Iron deficiency anemia , SP hystrectomy for Fibroid uterus is admitted with lightheadedness and dizziness with standing.She is found to have orthostatic hypotension.Patient symptoms are due to orthostatic hypotension. There is no H/O hemetemesis or Melena.There is no H/O any recent nausea ,vomiting or diarrhea.We will hydrate patient, will monitor Neuro check and will monitor patient in telemetry for arrhythmia. We will get Iron profile and will get Physical therapy evaluation. Management plan was discussed in detail with patient. Education was provided.
[2019-02-08 14:12] LABS: IRON 26 ug/dL (45-180)
[2019-02-08] MEDS ORDERED: Sodium Chloride 0.9% 1,000 ML IV SCH ×2 (14:15)
[2019-02-08 14:21] LABS: % IRON SATURATION 7 % (20-55); TOTAL IRON BINDING CAPACITY 391 ug/dL (265-497)
[2019-02-08 14:36] VITALS: BMI 28.3
[2019-02-08] MEDS ORDERED: Pneumococcal 23-Valent Vaccine IM ONE (14:36)
[2019-02-08 14:40] LABS: HEMOGLOBIN 9.1 g/dL (12.0-16.0); MEAN CELL VOLUME 73.7 fl (80.0-105.0); MEAN CORPUSCULAR HGB CONC 28.4 g/dl (31.0-37.0); MEAN PLATELET VOLUME 9.2 fl (7.0-11.0); RBC 4.34 10^6/uL (3.5-6.1); RED CELL DISTRIBUTION WIDTH 16.8 % (11.5-14.5); WHITE BLOOD COUNT 8.9 10^3/uL (4.5-11.0)
[2019-02-08 17:33] LABS: FOLATE 19.6 ng/mL
[2019-02-09 06:00] LABS: BASO # 0.02 K/mm3 (0.0-2.0); BASO % 0.3 % (0.0-3.0); EOS # 0.1 (0.0-0.7); EOS % 1.2 % (1.5-5.0); HEMOGLOBIN 9.1 g/dL (12.0-16.0); LYMPH # 2.2 (1.2-3.4); LYMPH % 30.6 % (22.0-35.0); MEAN CELL VOLUME 73.6 fl (80.0-105.0); MEAN CORPUSCULAR HEMOGLOBIN 20.9 pg (25.0-35.0); MEAN CORPUSCULAR HGB CONC 28.4 g/dl (31.0-37.0); MEAN PLATELET VOLUME 9.7 fl (7.0-11.0); MONO # 0.5 (0.1-0.6); MONO % 6.9 % (1.0-6.0); RBC 4.35 10^6/uL (3.5-6.1); RED CELL DISTRIBUTION WIDTH 16.7 % (11.5-14.5); WHITE BLOOD COUNT 7.3 10^3/uL (4.5-11.0)
[2019-02-09 06:17] VITALS: TEMP 98; O2SAT 99
[2019-02-09 06:31] LABS: LDL CHOLESTEROL 108 mg/dL (0-129)
[2019-02-09 06:44] LABS: ALB/GLOB RATIO 1.1 (1.1-1.8); ALBUMIN 3.4 g/dL (3.0-4.8); ALT/SGPT 11 U/L (7-56); AST/SGOT 14 U/L (14-36); BLOOD UREA NITROGEN 7 mg/dL (7-21); CALCIUM 8.7 mg/dL (8.4-10.5); GFR NON-AFRICAN AMERICAN > 60; HDL CHOLESTEROL 52 mg/dL (29-60)
[2019-02-09] MEDS ORDERED: Iron Sucrose 100 mg/5 ml Inj IVP ONE (07:48)
--- NOTE | 2019-02-09 11:17 | US ---
PROCEDURE: Bilateral carotid artery duplex ultrasound HISTORY: Carotid stenosis dizziness PHYSICIAN(S): Inderjit Mccauley MD. TECHNIQUE: Duplex sonography and color-flow Doppler were used to evaluate the carotid bifurcations and limited segments of the vertebral arteries bilaterally. FINDINGS: There is minimal smooth hypoechoic plaque noted at the carotid bifurcations bilaterally. The peak systolic velocity in the proximal right internal carotid artery is 82 cm/sec. This corresponds to a 0-19 percent proximal right ICA stenosis. Normal systolic velocities are noted in the proximal right external carotid artery. There is antegrade flow in the right vertebral artery. The peak systolic velocity in the proximal left internal carotid artery is 78 cm/sec. This corresponds to a 0-19 percent proximal left ICA stenosis. Normal systolic velocities are noted in the proximal left external carotid artery. There is antegrade flow in the left vertebral artery. IMPRESSION: 1. Bilateral 0-19% proximal ICA stenoses. 2. Antegrade flow in both vertebral arteries.
--- NOTE | 2019-02-09 12:02 | CP.PCM.DIS ---
<Merlene Yuan - Last Filed: 02/09/19 11:55> Provider - Provider Date of Admission: 02/08/19 11:05 Attending physician: Yadi Kaiser MD Primary care physician: Rosas Sheffield MD Time Spent in preparation of Discharge (in minutes): 45 Diagnosis - Discharge Diagnosis (1) BPPV (benign paroxysmal positional vertigo) Status: Acute (2) KOLE (iron deficiency anemia) Status: Acute Hospital Course - Lab Results Lab Results: Most Recent Lab Values WBC 7.3 10^3/uL (4.5-11.0) 02/09/19 05:30 RBC 4.35 10^6/uL (3.5-6.1) 02/09/19 05:30 Hgb 9.1 g/dL (12.0-16.0) L 02/09/19 05:30 Hct 32.0 % (36.0-48.0) L 02/09/19 05:30 MCV 73.6 fl (80.0-105.0) L 02/09/19 05:30 MCH 20.9 pg (25.0-35.0) L 02/09/19 05:30 MCHC 28.4 g/dl (31.0-37.0) L 02/09/19 05:30 RDW 16.7 % (11.5-14.5) H 02/09/19 05:30 Plt Count 230 10^3/uL (120.0-450.0) 02/09/19 05:30 MPV 9.7 fl (7.0-11.0) 02/09/19 05:30 Neut % (Auto) 61.0 % (50.0-68.0) 02/09/19 05:30 Lymph % (Auto) 30.6 % (22.0-35.0) 02/09/19 05:30 Kaufman % (Auto) 6.9 % (1.0-6.0) H 02/09/19 05:30 Eos % (Auto) 1.2 % (1.5-5.0) L 02/09/19 05:30 Baso % (Auto) 0.3 % (0.0-3.0) 02/09/19 05:30 Lymph # (Auto) 2.2 (1.2-3.4) 02/09/19 05:30 Kaufman # (Auto) 0.5 (0.1-0.6) 02/09/19 05:30 Eos # (Auto) 0.1 (0.0-0.7) 02/09/19 05:30 Baso # (Auto) 0.02 K/mm3 (0.0-2.0) 02/09/19 05:30 Absolute Neuts (auto) 4.42 (1.4-6.5) 02/09/19 05:30 Retic Count 1.36 % (0.5-1.5) 02/08/19 07:00 PT 11.9 SECONDS (9.4-12.5) 02/08/19 07:17 INR 1.05 02/08/19 07:17 APTT 30.5 Seconds (26.9-38.3) 02/08/19 07:17 Sodium 139 mmol/L (132-148) 02/09/19 05:30 Potassium 3.8 mmol/L (3.6-5.0) 02/09/19 05:30 Chloride 108 mmol/L (98-107) H 02/09/19 05:30 Carbon Dioxide 24 mmol/L (21-33) 02/09/19 05:30 Anion Gap 11 (10-20) 02/09/19 05:30 BUN 7 mg/dL (7-21) 02/09/19 05:30 Creatinine 0.5 mg/dl (0.7-1.2) L 02/09/19 05:30 Est GFR ( Amer) > 60 02/09/19 05:30 Est GFR (Non-Af Amer) > 60 02/09/19 05:30 POC Glucose (mg/dL) 114 mg/dL (65-110) H 02/09/19 07:10 Random Glucose 92 mg/dL (70-110) 02/09/19 05:30 Calcium 8.7 mg/dL (8.4-10.5) 02/09/19 05:30 Phosphorus 3.8 mg/dL (2.5-4.5) 02/09/19 05:30 Magnesium 2.0 mg/dL (1.7-2.2) 02/09/19 05:30 Iron 26 ug/dL (45-180) L 02/08/19 07:00 TIBC 391 ug/dL (265-497) 02/08/19 07:00 % Saturation 7 % (20-55) L 02/08/19 07:00 Transferrin 296.63 mg/dL (206-381) 02/08/19 07:00 Ferritin 5.0 ng/mL 02/08/19 07:00 Total Bilirubin 0.5 mg/dL (0.2-1.3) 02/09/19 05:30 AST 14 U/L (14-36) D 02/09/19 05:30 ALT 11 U/L (7-56) 02/09/19 05:30 Alkaline Phosphatase 57 U/L (38-126) 02/09/19 05:30 Lactate Dehydrogenase 268 U/L (333-699) L 02/08/19 07:17 Total Creatine Kinase 26 U/L (35-230) L 02/08/19 07:17 Troponin I < 0.01 ng/mL 02/08/19 07:17 Total Protein 6.4 g/dL (5.8-8.3) 02/09/19 05:30 Albumin 3.4 g/dL (3.0-4.8) 02/09/19 05:30 Globulin 3.0 gm/dL 02/09/19 05:30 Albumin/Globulin Ratio 1.1 (1.1-1.8) 02/09/19 05:30 Triglycerides 116 mg/dL (35-160) 02/09/19 05:30 Cholesterol 180 mg/dL (130-200) 02/09/19 05:30 LDL Cholesterol Direct 108 mg/dL (0-129) 02/09/19 05:30 HDL Cholesterol 52 mg/dL (29-60) 02/09/19 05:30 Vitamin B12 281 pg/mL (239-931) 02/08/19 07:00 Folate 19.6 ng/mL 02/08/19 07:00 Urine Color Light yellow (YELLOW) 02/08/19 08:33 Urine Appearance Clear (CLEAR) 02/08/19 08:33 Urine pH 6.0 (4.7-8.0) 02/08/19 08:33 Ur Specific Lyons 1.010 (1.005-1.035) 02/08/19 08:33 Urine Protein Negative mg/dL (<30 mg/dL) 02/08/19 08:33 Urine Glucose (UA) Negative mg/dL (NEGATIVE) 02/08/19 08:33 Urine Ketones Negative mg/dL (NEGATIVE) 02/08/19 08:33 Urine Blood Negative (NEGATIVE) 02/08/19 08:33 Urine Nitrate Negative (NEGATIVE) 02/08/19 08:33 Urine Bilirubin Negative (NEGATIVE) 02/08/19 08:33 Urine Urobilinogen 0.2 E.U./dL (<1 E.U./dL) 02/08/19 08:33 Ur Leukocyte Esterase Negative Rupesh/uL (NEGATIVE) 02/08/19 08:33 - Hospital Course Hospital Course: Upon Admission As per HPI: 48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 Patient reports she feels more lightheaded than dizzy especially when goes from lying down to standing up. She reports the episodes of lightheadedness last 1-2 seconds. She does admit to feeling unsteady on her feet and having some loss of balance during these episodes if she tried to ambulate but denies any falls/trauma. She denies any focal weakness/numbness in b/l UE and LE. She denies any tonic/clonic movements, loss of bladder/bowel incontinence. Patient reports that her dizziness causes her to feel like she is spinning. She denied any fever, chills, chest pain, palpitations, SOB, cough, abd pain, nausea, vomiting, dysuria, hematuria, diarrhea, melena, pain/swelling in her b/l LE. Patient denies any recent illnesses/travel/infections. She admits to some mild headache at times. Hospital Course [facility]. Head CT in the ER was unremarkable. Patient had positive orthostatics on admission. She was given 1L bolus after which orthostatics resolved. In light of H&H, anemia work up was ordered which revealed iron deficiency anemia. Patient was given 1 dose of IV iron and started on PO iron to be continued outpatient. Patient is hemodynamically stable with no acute signs of bleeding thus is does not require blood transfusion at this time. Physical therapy examined patient and reported left beating nystagmus during Vasile Hallpike maneuver which also reproduced her dizziness. Patient had a carotid u/s which was also unremarkable. Patient clinically improved and on day of discharge was deemed medically optimized for discharge with outpatient follow up. Discharge Instructions You are being discharged from [facility] Please take the following medication as prescribed: -Ferrous sulfate 1 tab by mouth three times daily Please follow up with your primary care doctor Dr. Sheffield within 3-5 days of discharge. You will need a colonoscopy as an outpatient. Please also follow up with a vestibular therapy clinic. If symptoms return please visit your nearest Emergency Room. Instructions discussed in detail with patient who voiced understanding and agreement. Discharge Exam - Head Exam Head Exam: ATRAUMATIC, NORMAL INSPECTION, NORMOCEPHALIC - Eye Exam Eye Exam: EOMI, Normal appearance, PERRL. absent: Conjunctival injection, Scleral icterus - ENT Exam ENT Exam: Mucous Membranes Moist - Neck Exam Neck exam: Full Rom, Normal Inspection - Respiratory Exam Respiratory Exam: Clear to PA & Lateral, NORMAL BREATHING PATTERN. absent: Accessory Muscle Use, Rales, Rhonchi, Wheezes, Respiratory Distress - Cardiovascular Exam Cardiovascular Exam: +S1, +S2. absent: Systolic Murmur - GI/Abdominal Exam GI & Abdominal Exam: Normal Bowel Sounds, Soft. absent: Firm, Guarding, Rigid, Tenderness - Extremities Exam Extremities exam: normal capillary refill, normal inspection, pedal pulses present - Neurological Exam Neurological exam: Alert, CN II-XII Intact, Oriented x3 - Psychiatric Exam Psychiatric exam: Normal Affect, Normal Mood - Skin Skin Exam: Dry, Intact, Normal Color, Warm Discharge Plan - Discharge Medications Prescriptions: Ferrous Sulfate [Feosol] 324 mg PO TID #48 ect - Follow Up Plan Condition: STABLE Disposition: HOME/ ROUTINE Instructions: Anemia Caused by Low Iron, Vertigo (a Type of Dizziness) (DC) Additional Instructions: You are being discharged from [facility] Please take the following medication as prescribed: -Ferrous sulfate 1 tab by mouth three times daily Please follow up with your primary care doctor Dr. Sheffield within 3-5 days of discharge. You will need a colonoscopy as an outpatient. Please also follow up with a vestibular therapy clinic. If symptoms return please visit your nearest Emergency Room. Referrals: Rosas Sheffield MD [Primary Care Provider] - <Luisa Emmanuel - Last Filed: 02/09/19 14:34> Provider - Provider Date of Admission: 02/08/19 11:05 Attending physician: Yadi Kaiser MD Primary care physician: Rosas Sheffield MD [facility] Course - Lab Results Lab Results: Most Recent Lab Values WBC 7.3 10^3/uL (4.5-11.0) 02/09/19 05:30 RBC 4.35 10^6/uL (3.5-6.1) 02/09/19 05:30 Hgb 9.1 g/dL (12.0-16.0) L 02/09/19 05:30 Hct 32.0 % (36.0-48.0) L 02/09/19 05:30 MCV 73.6 fl (80.0-105.0) L 02/09/19 05:30 MCH 20.9 pg (25.0-35.0) L 02/09/19 05:30 MCHC 28.4 g/dl (31.0-37.0) L 02/09/19 05:30 RDW 16.7 % (11.5-14.5) H 02/09/19 05:30 Plt Count 230 10^3/uL (120.0-450.0) 02/09/19 05:30 MPV 9.7 fl (7.0-11.0) 02/09/19 05:30 Neut % (Auto) 61.0 % (50.0-68.0) 02/09/19 05:30 Lymph % (Auto) 30.6 % (22.0-35.0) 02/09/19 05:30 Kaufman % (Auto) 6.9 % (1.0-6.0) H 02/09/19 05:30 Eos % (Auto) 1.2 % (1.5-5.0) L 02/09/19 05:30 Baso % (Auto) 0.3 % (0.0-3.0) 02/09/19 05:30 Lymph # (Auto) 2.2 (1.2-3.4) 02/09/19 05:30 Kaufman # (Auto) 0.5 (0.1-0.6) 02/09/19 05:30 Eos # (Auto) 0.1 (0.0-0.7) 02/09/19 05:30 Baso # (Auto) 0.02 K/mm3 (0.0-2.0) 02/09/19 05:30 Absolute Neuts (auto) 4.42 (1.4-6.5) 02/09/19 05:30 Retic Count 1.36 % (0.5-1.5) 02/08/19 07:00 PT 11.9 SECONDS (9.4-12.5) 02/08/19 07:17 INR 1.05 02/08/19 07:17 APTT 30.5 Seconds (26.9-38.3) 02/08/19 07:17 Sodium 139 mmol/L (132-148) 02/09/19 05:30 Potassium 3.8 mmol/L (3.6-5.0) 02/09/19 05:30 Chloride 108 mmol/L (98-107) H 02/09/19 05:30 Carbon Dioxide 24 mmol/L (21-33) 02/09/19 05:30 Anion Gap 11 (10-20) 02/09/19 05:30 BUN 7 mg/dL (7-21) 02/09/19 05:30 Creatinine 0.5 mg/dl (0.7-1.2) L 02/09/19 05:30 Est GFR ( Amer) > 60 02/09/19 05:30 Est GFR (Non-Af Amer) > 60 02/09/19 05:30 POC Glucose (mg/dL) 104 mg/dL (65-110) 02/09/19 11:55 Random Glucose 92 mg/dL (70-110) 02/09/19 05:30 Calcium 8.7 mg/dL (8.4-10.5) 02/09/19 05:30 Phosphorus 3.8 mg/dL (2.5-4.5) 02/09/19 05:30 Magnesium 2.0 mg/dL (1.7-2.2) 02/09/19 05:30 Iron 26 ug/dL (45-180) L 02/08/19 07:00 TIBC 391 ug/dL (265-497) 02/08/19 07:00 % Saturation 7 % (20-55) L 02/08/19 07:00 Transferrin 296.63 mg/dL (206-381) 02/08/19 07:00 Ferritin 5.0 ng/mL 02/08/19 07:00 Total Bilirubin 0.5 mg/dL (0.2-1.3) 02/09/19 05:30 AST 14 U/L (14-36) D 02/09/19 05:30 ALT 11 U/L (7-56) 02/09/19 05:30 Alkaline Phosphatase 57 U/L (38-126) 02/09/19 05:30 Lactate Dehydrogenase 268 U/L (333-699) L 02/08/19 07:17 Total Creatine Kinase 26 U/L (35-230) L 02/08/19 07:17 Troponin I < 0.01 ng/mL 02/08/19 07:17 Total Protein 6.4 g/dL (5.8-8.3) 02/09/19 05:30 Albumin 3.4 g/dL (3.0-4.8) 02/09/19 05:30 Globulin 3.0 gm/dL 02/09/19 05:30 Albumin/Globulin Ratio 1.1 (1.1-1.8) 02/09/19 05:30 Triglycerides 116 mg/dL (35-160) 02/09/19 05:30 Cholesterol 180 mg/dL (130-200) 02/09/19 05:30 LDL Cholesterol Direct 108 mg/dL (0-129) 02/09/19 05:30 HDL Cholesterol 52 mg/dL (29-60) 02/09/19 05:30 Vitamin B12 281 pg/mL (239-931) 02/08/19 07:00 Folate 19.6 ng/mL 02/08/19 07:00 Urine Color Light yellow (YELLOW) 02/08/19 08:33 Urine Appearance Clear (CLEAR) 02/08/19 08:33 Urine pH 6.0 (4.7-8.0) 02/08/19 08:33 Ur Specific Lyons 1.010 (1.005-1.035) 02/08/19 08:33 Urine Protein Negative mg/dL (<30 mg/dL) 02/08/19 08:33 Urine Glucose (UA) Negative mg/dL (NEGATIVE) 02/08/19 08:33 Urine Ketones Negative mg/dL (NEGATIVE) 02/08/19 08:33 Urine Blood Negative (NEGATIVE) 02/08/19 08:33 Urine Nitrate Negative (NEGATIVE) 02/08/19 08:33 Urine Bilirubin Negative (NEGATIVE) 02/08/19 08:33 Urine Urobilinogen 0.2 E.U./dL (<1 E.U./dL) 02/08/19 08:33 Ur Leukocyte Esterase Negative Rupesh/uL (NEGATIVE) 02/08/19 08:33 Attending/Attestation - Attestation I have personally seen and examined this patient.: Yes I have fully participated in the care of the patient.: Yes I have reviewed all pertinent clinical information, including history, physical exam and plan: Yes Notes (Text): 02/09/19 14:30 Patient was seen and examined with medical billing associate. 48 years old female with PMH of Iron deficiency anemia , SP hystrectomy for Fibroid uterus was admitted with lightheadedness and dizziness with standing.She was found to have orthostatic hypotension.Patient symptoms were due to orthostatic hypotension. Symptoms has improved with IV hydration. Patient is ambulatory.She was given education about orthostatic hypotension. Telemetry is unremarkable for arrhythmia. Hemoglobin is stable.Patient was given IV Iron in hospital and will be discharged home on oral Iron sulphate. She has been advised to take stool softener while on Iron to avoid constipation. Management plan was discussed in detail with patient. Education was provided.
[2019-02-09 12:29] VITALS: BP 146/91; PULSE 54; RESP 18
== END 2019-02-09 14:05 | disposition home or self-care (01) ==
LOC: ED 05:42 → ERH 11:05 → 2RNO 12:06
PROVIDERS: ADMIT Internal Medicine; ATTEND Internal Medicine
DX: H81.10 Benign paroxysmal vertigo, unspecified ear (principal); D50.9 Iron deficiency anemia, unspecified; H55.00 Unspecified nystagmus; I95.1 Orthostatic hypotension; Z90.710 Acquired absence of both cervix and uterus; Z82.3 Family history of stroke; Z80.3 Family history of malignant neoplasm of breast
CPT/HCPCS: 36415; 70450; 71045; 80053; 80061; 81003; 82550; 82607; 82728; 82746; 82948; 83615; 83735; 84100; 84238; 84466; 84484; 85025; 85027; 85044; 85610; 85730; 93005; 93880; 97116; 97161; 99285; G0378; G8978; G8979; J1756; J7030